=== PATIENT | male | born 1970 | race Two or more races ===

== ENCOUNTER 2023-05-30 16:11 | Emergency (ER) | payer SELFPAY ==
[~2023-05-30] VITALS: Ht 162.6 cm; Wt 73.0 kg
[2023-05-30] MEDS ORDERED: TETANUS-DIPTH-ACEL PERTUSSIS 0.5ML SYR Tdap IM ONE ×2 (17:15→22:06)
[2023-05-30] MEDS ORDERED: HYDROcodone-ACET 10/325MG TAB PO ONE (17:15)
[2023-05-30] MEDS ORDERED: NEOMYCIN-BACITRACIN-POLYM UNITDOSE PKG TOP OINT TOP ONE ×2 (19:00→22:03)
[2023-05-30] MEDS ORDERED: IBUP-1455 PO (19:20)
[2023-05-30] MEDS ORDERED: CEPH500C PO (19:20)
[2023-05-30] MEDS ORDERED: ACE3T PO (19:48)
[2023-05-30] MEDS ORDERED: HYDROcodone-ACET 10/325MG TAB ONE (22:03)
[2023-05-30 22:06] VITALS: BP 142/79; PULSE 71; RESP 20; O2SAT 95
== END 2023-05-30 22:23 | disposition home or self-care (01) ==
LOC: ER 16:11
DX: S61.512A Laceration without foreign body of left wrist, initial encounter (principal); Z79.1 Long term (current) use of non-steroidal anti-inflammatories (NSAID); Z79.899 Other long term (current) drug therapy; W26.8XXA Contact with other sharp object(s), not elsewhere classified, initial encounter; Y93.89 Activity, other specified; Y92.89 Other specified places as the place of occurrence of the external cause; Y99.8 Other external cause status
CPT/HCPCS: 73200; 90471; 90715